=== PATIENT | female | born 1940 | race Caucasian/White ===

== ENCOUNTER 2017-03-02 12:17 | Inpatient (IN) | payer MEDICARE, OTHER ==
--- NOTE | ~2017-03-02 | IDS ---
Interim Discharge Summary [facility] [address] [place]. [address] NAME: PALOMO WITT : 42 STATUS : ADM IN PAT#: [id number] AGE: 76 ADM/REG DATE : 03/02/17 MR#: [id number] REPORT SERV DATE: 03/07/17 DICTATED BY: DATE: REPORT STATUS : Draft TRANSCRIBED BY: MODL DATE: 03/06/17 ADMISSION DATE: 03/02/2017 DISCHARGE DATE: ADDENDUM: Initial plan upon admission per family wishes was to attempt a trial of antibiotic therapy to see how the patient responded over several days. At that time, the patient's son did not want to proceed with Vascular Surgery's recommendation for right above knee amputation to treat chronic nonhealing right gangrenous heel ulcer. Trial of antibiotics to treat sepsis was initiated, and the patient's family requested that the patient be returned to long-term care facility under the care of their Hospice Service once antibiotics had stabilized infection. During this admission the patient has had multiple issues to include bacteremia related to right heel gangrene, E. coli urinary tract infection, and aspiration pneumonia confirmed with chest x-ray. The patient has responded well to antibiotic therapy to include Vancocin, cefepime, and Flagyl. The patient's son presented to the hospital today requesting reconsult with Vascular Surgery for reconsideration of above knee amputation right lower extremity when the patient's health status is optimized. Son stated he realizes that the patient's foot will never heal and he would like to give her an opportunity for infection source control since she is responding well to treatment for UTI, pneumonia, and bacteremia. 1. AFib with RVR. The patient has a history of atrial fibrillation and is on Cordarone and Cardizem. Prior to this dictation the patient's heart rate became elevated between 130 and 140s for greater than 30 minutes. EKG confirmed AFib with RVR. The patient's Cardizem CD 120 mg tablet p.o. every a.m. was discontinued and Cardizem 30 mg p.o. every 6 hours was initiated. First dose to be given at midnight. The patient will be placed on defensive monitoring. Consideration for transfer to telemetry floor if no response to medication change. 2. Right heel gangrene. Ulcer was present upon admission. Prior treatment included topical wound care and Bactrim DS at long-term care facility. Dr. Chua assessed the patient and stated only possible hope of benefit for infection control was above knee amputation. The patient's family now wishes to proceed with this surgical intervention if Vascular Surgery still agrees with the plan. 3. Acute bacteremia. Blood cultures positive for Morganella, this is related to right heel ulcer. Continue at least 14-day antibiotic therapy with Vancocin, cefepime, and Flagyl. 4. Urinary tract infection. Culture positive for greater than 100,000 colonies of E. coli. Continue antibiotic. 5. Protein calorie malnutrition. The patient has hypoalbuminemia. ProSource and Ensure Enlive have been added and the patient is taking these supplements three times daily without difficulty. 6. Likely aspiration pneumonia. The patient had change in respiratory status. On the morning of 03/05/2017 chest x-ray, confirmed likely aspiration pneumonia. Continue antibiotics. The patient's respiratory status is stable and respiratory status has improved. Interim Discharge Summary [address] [address] NAME: PALOMO WITT : 42 STATUS : ADM IN [facility]#: [id number] AGE: 76 ADM/REG DATE : 03/02/17 MR#: [id number] REPORT SERV DATE: 03/07/17 DICTATED BY: DATE: REPORT STATUS : Draft TRANSCRIBED BY: JANAY DATE: 03/06/17 7. Volume overload. The patient takes Lasix outpatient. She started exhibiting signs and symptoms of volume overload to include bilateral lower extremity edema and bilateral upper extremity edema. Lasix has been added back 20 mg IV every 12 hours. Monitor closely for dehydration and titrate as indicated. 8. Code status. At this time, the patient is a DNR limited, no compressions and no intubation. CURRENT PLAN: 1. Vascular Surgery has been reconsulted for evaluation and recommendation to proceed with right above knee amputation in the setting of right gangrenous heel ulcer. 2. The patient to eventually return to long-term care facility. If Surgery is not followed through then reconsider hospice on discharge. RUSTAM/JANAY ALFRED Calderón / [id number] CC: Shree Pollard II, MD
--- NOTE | ~2017-03-02 | DS ---
Discharge Summary [facility] [address] [facility] [place]. [address] NAME: PALOMO WITT : 42 STATUS : DIS IN PAT#: [id number] AGE: 76 ADM/REG DATE : 03/02/17 MR#: [id number] REPORT SERV DATE: 03/23/17 DICTATED BY: NABIL GRAF DATE: 03/22/17 REPORT STATUS : Draft TRANSCRIBED BY: MODL DATE: 03/22/17 ADMISSION DATE: 03/02/2017 DISCHARGE DATE: 03/22/2017 DISCHARGE DIAGNOSES: Include: 1. Right foot and heel gangrene with bacteremia Morganella, status post a right leg above- the-knee amputation performed on 03/10/2017. 2. Aspiration pneumonia, resolved. 3. Severe protein-kilocalorie malnutrition with hypoalbuminemia. 4. Hypotension, resolved. 5. Chronic atrial fibrillation. 6. Urinary tract infection, Escherichia coli, treated. 7. Volume overload. 8. Chronic debility. 9. History of dementia and bipolar. DISCHARGE MEDICATIONS: As follows: Eliquis 5 mg p.o. twice a day, amiodarone 200 mg twice a day, Celexa 30 mg daily, Depakote 125 mg daily, Depakote 375 mg at bedtime, metoprolol 12.5 mg twice a day, Prilosec 40 mg at breakfast and supper, MiraLAX one packet daily, Seroquel 50 mg twice a day, torsemide 20 mg daily, K-Dur 20 mEq p.o. daily, Imdur 30 mg daily, Ryegate 5/325 one tablet every four hours p.r.n. for pain, and nitroglycerin sublingual 0.4 mg p.r.n. for chest pain. HISTORY OF PRESENT ILLNESS: A 76-year-old white female, who had been a long-term resident at [facility] with a history of chronic debilitation and being bedridden, presented originally with a gangrenous right lower extremity. Please see the initial H and P of Dr. Rene Avalos. Please also see the interim discharge summary of Dr. Shree Pollard and the interim discharge summary of myself as this discharge summary will cover the dates of 03/14/2017 until 03/22/2017. CONTINUATION IN HOSPITAL COURSE: The patient had recovered well from her surgical procedure of the right [id number] amputation. Her incision was clean, dry, and intact with sutures. Her lab work had remained stable after receiving transfusion prior on 03/12/2017. She remained afebrile. Vascular Surgery, Dr. James Chua, agreed with discharge when approved for facility and with an outpatient followup. Her family did not wish for the patient to go back to [facility] and other facilities were chosen. It took several days for bed availability to be accomplished, and the patient remained stable, afebrile, in no acute distress with no new complaints and was finally approved for discharge on 03/22/2017 with the changes noted on her overall medication regimen with the addition of metoprolol and the discontinuation of her prior Cardizem. Please note, greater than 30 minutes was spent on this discharge for prior record review, medication review, discussions with case management and family. DICTATED BY: Nabil Graf NP Discharge Summary [address] [address] NAME: PALOMO WITT : 42 STATUS : DIS IN PAT#: [id number] AGE: 76 ADM/REG DATE : 03/02/17 MR#: [id number] REPORT SERV DATE: 03/23/17 DICTATED BY: NABIL GRAF DATE: 03/22/17 REPORT STATUS : Draft TRANSCRIBED BY: JANAY DATE: 03/22/17 GILMAR/JANAY Nabil Graf NP / [id number] CC: Yaniv Olmos MD
--- NOTE | ~2017-03-02 | IDS ---
Interim Discharge Summary [facility] [address] [place]. [address] NAME: PALOMO WITT : 42 STATUS : ADM IN [facility]#: [id number] AGE: 76 ADM/REG DATE : 03/02/17 MR#: [id number] REPORT SERV DATE: 03/07/17 DICTATED BY: DATE: REPORT STATUS : Draft TRANSCRIBED BY: MODL DATE: 03/06/17 ADMISSION DATE: 03/02/2017 DISCHARGE DATE: DATE OF DISCHARGE: Undetermined at this time. CONSULTATIONS: Dr. Chua, Vascular Surgery. Interim summary covers dates of service between 03/02/2017 and 03/06/2017. INTERIM DISCHARGE DIAGNOSES: 1. Atrial fibrillation now with rapid ventricular response. 2. Right heel gangrene. 3. Acute bacteremia. 4. Urinary tract infection. 5. Protein calorie malnutrition. 6. Likely aspiration pneumonia. 7. Volume overload. HOSPITAL COURSE: Briefly, the patient is a 76-year-old female who is a long-term resident at [facility]. The patient was admitted on 03/02/2017 for gangrene with septic shock. The patient has a history of nonhealing right heel ulcer. That long-term care facility had been treating topically with recent initiation of Septra. The patient is began presenting with hypotension, elevated heart rate, and blister on anterior foot at the level of the ankle. The patient was taken to the emergency room for further evaluation and treatment. RUSTAM/JANAY Gisell Rebolledo NP-Matt / [id number] CC: Shree Pollard II, MD
--- NOTE | ~2017-03-02 | HP ---
History And Physical [id number] [place]. [address] NAME: PALOMO WITT : 42 STATUS : ADM IN [facility]#: [id number] AGE: 76 ADM/REG DATE : 03/02/17 MR#: [id number] REPORT SERV DATE: 03/02/17 DICTATED BY: RA DAVIS DATE: 03/02/17 REPORT STATUS : Draft TRANSCRIBED BY: MODSukhdeep DATE: 03/02/17 DATE OF ADMISSION: 03/02/2017 ATTENDING PHYSICIAN: Dr. Schwarz. REASON FOR ADMISSION: Gangrene with septic shock and impending . HISTORY OF PRESENT ILLNESS: This is a 76-year-old white female who resides at [facility]. She is completely bedridden with extension contractures of her feet. She was hospitalized from 12/10/2016 to 12/14/2016. Son says she returned back with a heel ulcer at the time of readmission. They have been treating the heel ulcer topically and recently started Septra DS on the patient. She began having hypotension with blood pressure down to 90/60 with elevated heart rate and blister on the anterior foot at the level of the ankle. She was brought to the emergency room. Dr. Moreland saw him in evaluation. She called Mr. Alfredo Witt, her son and power of attorney at law, who states she does not want to have her leg taken off. The patient agrees that she does not want to have her leg taken off even if it were to save her life. We discussed in the emergency room, detention with hospice. The patient and her son do want to try antibiotics for a defined period of time IV and possible [employer]NA[employer] and Dr. Chua was consulted prior to my being consulted for admission. We are going to admit her to the hospital for those considerations but the patient remains comfort care and we will apply comfort measures even above curative relief. PAST MEDICAL HISTORY: She was recently in the hospital for influenza B and has had some heart disease in the past and son believes that she had coronary artery bypass grafting though there is no scar for this. She may have had TIAs in the past. She does not have any diabetes, history of stroke. She does have schizophrenia and dementia. She likely has Alzheimer's disease and history of COPD. She had DVT of her lower extremities and is on Eliquis for this and chronic atrial fibrillation. There is a questionable history of seizure disorder. She had GI bleeding while she was at [facility] and she used to take snuff orally. She had a left tibial fracture in 02/2016. CURRENT HOME MEDICATIONS: Her current home medications are as follows: Amiodarone 200 mg p.o. b.i.d.; Eliquis 5 mg p.o. b.i.d.; Celexa 30 mg p.o. q.a.m.; diltiazem ER 120 mg p.o. every morning; Depakote 125 mg p.o. every morning and 375 mg at bedtime; Lasix 40 mg p.o. q.a.m.; Wilmot 5/325 q.4 hours p.r.n. pain; isosorbide mononitrate 30 mg p.o. daily; nitroglycerin sublingually p.r.n.; omeprazole 40 mg p.o. before breakfast and supper; MiraLAX scheduled for constipation 1 packet every morning; potassium SR 20 mEq p.o. daily; Seroquel 50 mg p.o. b.i.d.; and Bactrim DS 1 tablet p.o. b.i.d. for 7 days, it was started yesterday and taken this morning. SOCIAL HISTORY: She lives in the detention. Took snuff orally as above. FAMILY HISTORY: She is unable to remember any family history and neither her son. REVIEW OF SYSTEMS: History And Physical [address] [address] NAME: PALOMO WITT : 42 STATUS : ADM IN [facility]#: [id number] AGE: 76 ADM/REG DATE : 03/02/17 MR#: [id number] REPORT SERV DATE: 03/02/17 DICTATED BY: RA DAVIS DATE: 03/02/17 REPORT STATUS : Draft TRANSCRIBED BY: JANAY DATE: 03/02/17 She is unable to complete the review of systems but denies chest pain and shortness of breath right now. The remainder of the systems is negative. PHYSICAL EXAMINATION: VITAL SIGNS: Her blood pressure is 90/60 with a heart rate of 125, respiratory rate was 18. HEENT: EOMI. Sclerae clear. Conjunctivae pink. NECK: No bruit without any JVD. CHEST: Clear to A and P. HEART: Irregularly irregular. Rapid. ABDOMEN: Soft. No masses felt. She resists deep palpation. Bowel sounds are positive. EXTREMITIES: Extremities have swelling in the lower extremities. She does have a large blister approximately 6 x 4 on the anterior right ankle. She has a blackened heel that extends around the edges but no actual drainage of purulent material or fluctuance. No distal pulses are palpable. She has extension contractures of her ankles. NEUROLOGIC: She has facial grimacing with some tic-like activity of her blinking of her eyes. She is edentulous. She moves upper extremities symmetrically and equally bilaterally. She does move her lower extremities and complains of discomfort when palpating in and around the right ankle and heel. LYMPHATICS: There is no adenopathy palpable. SKIN: Large blister on the right anterior ankle. LABORATORY: The BNP was 360. Lactate was 1.1. Urinalysis showed greater than 182 white cells per high-powered field. Comprehensive metabolic panel showed a creatinine of 1.78, BUN of 17, sodium of 135, potassium 3.8, her albumin was 1.9 with globulin of 4.2. Troponin 0.03. Hemoglobin 10.9, hematocrit 32.8, white count 12.8, and platelets 206,000. INR 1.9. ASSESSMENT: 1. Gangrene right heel, blister anteriorly. May have a combination of wet and dry gangrene. After discussion with the son, Aniceto, and the patient, she desires no amputation. We will try consideration of revascularization by percutaneous means. Dr. Chua been consulted even before I arrived. IV antibiotics with vancomycin and cefepime have been given. We may do better with Zosyn because of potential anaerobic coverage as well. She however has allergy to penicillins, so we will add clindamycin to the vancomycin and cefepime therapy. 2. We will try antibiotics for a defined period of time. The patient was offered hospice care to the son. He prefers defined limited treatment with comfort care in mind and see if treatment was effective; if not, after 1 to 2 days, he would accept hospice care and perhaps transfer back to [facility] with hospice care. 3. Atherosclerotic cardiovascular disease, extent is known. She did have an echocardiogram done during the prior hospitalization, that showed normal left ventricular function. 4. Schizophrenia. 5. Dementia. History And Physical [address] [address] NAME: PALOMO WITT : 42 STATUS : ADM IN PAT#: [id number] AGE: 76 ADM/REG DATE : 03/02/17 MR#: [id number] REPORT SERV DATE: 03/02/17 DICTATED BY: RA DAVIS DATE: 03/02/17 REPORT STATUS : Draft TRANSCRIBED BY: MODL DATE: 03/02/17 6. Atrial fibrillation chronic. 7. Protein calorie malnutrition. 8. Chronic pain. 9. Dementia with behavioral abnormality of the Alzheimer's type. 10.Constipation. PLAN: As outlined above, define antibiotics triple therapy. Vascular consult, this was already done prior to my arrival. Drain heal if necessary. PLAN: Percutaneous angioplasty if necessary to restore circulation but no amputation and onlay. The patient is not to be resuscitated in the event of cardiac arrest and use of comfort measures even in the face of hypotension will be used. JOSE ROBERTO/JANAY Ra Davis M.D. / [id number] CC: Mauro Schwarz Jr, MD Charles Scott Joels, M.D. Mauro Buenrostro M.D., Ph.D, F.A.C.C.
--- NOTE | ~2017-03-02 | IDS ---
Interim Discharge Summary [facility] [address] [place]. [address] NAME: PALOMO WITT : 42 STATUS : ADM IN [facility]#: [id number] AGE: 76 ADM/REG DATE : 03/02/17 MR#: [id number] REPORT SERV DATE: 03/14/17 DICTATED BY: NABIL GRAF DATE: 03/13/17 REPORT STATUS : Draft TRANSCRIBED BY: MODL DATE: 03/13/17 ADMISSION DATE: 03/02/2017 DISCHARGE DATE: INTERIM DIAGNOSES: Include: 1. Right foot and heel gangrene, status post right leg amputation, [id number] on 03/10/2017. 2. Anemia of acute blood loss, necessitating transfusion of packed red blood cells. Most recent hemoglobin and hematocrit 10.7 and 31.9. 3. Hypotension, improved. 4. Severe protein-kilocalorie malnutrition with hypoalbuminemia. 5. Chronic atrial fibrillation, rapid ventricular rate. 6. Chronic debility. 7. Dementia. 8. Aspiration pneumonia, treated with completion of antibiotics. 9. Urinary tract infection Escherichia coli, treated. 10.Volume overload. HISTORY OF PRESENT ILLNESS: A 76-year-old white female, who is a resident at [facility], chronically debilitated and bedridden for several years, who presented with gangrene of lower extremity and evidence of gangrene again. Please see the initial H and P of Dr. Rene Avalos as patient was started on an empiric antibiotic therapy. Lab work was ordered and followed, cultures were obtained. Please see the interim discharge summary of Dr. Shree Pollard as this interim summary will cover the dates of 03/07/2017 until 03/13/2017. CONSULTS DURING THIS ADMISSION: Include Vascular Surgery, Dr. James Chua. HOSPITAL COURSE: The patient was seen in the beginning on 03/07/[address] Suraj Osborn for discussion with the family about pursuing the amputation of the right lower extremity. She continued on antibiotic therapy for the time being and continued on treatment for her AFib and attempted to maximize her kcal in the setting of her malnutrition. After discussion with the family and Dr. James Chua, it was determined that they would pursue the hxjuz-sib-huht amputation which again was performed on 03/10/2017 with overall poor prognosis given her comorbidities and bedridden nature, but the patient subsequently went for the amputation and has recovered from that. She did require transfusion of packed red blood cells postoperatively in 2 units as she was somewhat hypotensive afterwards. We attempted to use some very low-dose beta-mat therapy with her AFib. She initially did not tolerate that, but I have attempted this again at 12.5 mg twice a day. Currently, the family does not wish to go back to her prior long-term care facility at [facility], and Case Management is working on other facility at this time. I have made adjustments on her diuretic therapy as I prefer torsemide given her low albumin state. Again, we will try a low-dose beta mat. Discontinued her IV fluid, discontinued her catheter, and have resumed her Eliquis postoperatively. I again want to thank Dr. James Chua help on this patient during hospitalization here and Interim Discharge Summary [address] [place]. [address] NAME: PALOMO WITT : 42 STATUS : ADM IN [facility]#: [id number] AGE: 76 ADM/REG DATE : 03/02/17 MR#: [id number] REPORT SERV DATE: 03/14/17 DICTATED BY: NABIL GRAF DATE: 03/13/17 REPORT STATUS : Draft TRANSCRIBED BY: JANAY DATE: 03/13/17 hopefully will be able to find a new facility very soon for discharge. GILMAR/BILLIEL Nabil Graf NP / [id number] CC: Suraj Osborn M.D.
--- NOTE | ~2017-03-02 | OP ---
Record Of Operation [facility] [address] [place]. [address] NAME: PALOMO WITT : 42 STATUS : ADM IN PAT#: [id number] AGE: 76 ADM/REG DATE : 03/02/17 MR#: [id number] REPORT SERV DATE: 03/10/17 DICTATED BY: JAMES CHUA DATE: 03/10/17 REPORT STATUS : Draft TRANSCRIBED BY: MODSukhdeep DATE: 03/10/17 DATE OF PROCEDURE: 03/10/2017 PREOPERATIVE DIAGNOSIS: Gangrene, right foot. POSTOPERATIVE DIAGNOSIS: Gangrene, right foot. PROCEDURE: Right above-knee amputation. SURGEON: James Chua M.D. RESIDENT: Shree Mcdonald. ANESTHESIA: General. COMPLICATIONS: None. BLOOD LOSS: 50 mL. HISTORY: The patient is a 76-year-old female with gangrene in her right foot. After long discussions with the family, they performed above-knee amputation instead of hospice. DESCRIPTION OF PROCEDURE: The patient was taken to the operating up room and placed in the supine position. She was given general anesthesia without complication. Right leg was prepped and draped in sterile fashion. Fish-mouth incision was created in the mid thigh with a 10 blade and Bovie cautery used to dissect the subcutaneous tissues and muscle. The sciatic nerve was identified and ligated with the silk tie and divided. The femoral vessels were controlled with clamps, divided, and ligated with silk ties. The femur was divided with a power saw proximal to the flaps. The stump was irrigated and hemostasis assured. The fascia was closed with running 2-0 Vicryl suture and the skin was closed with interrupted Ethilon vertical mattress sutures and sterile dressing applied. The patient tolerated the procedure relatively well. She will be extubated in the operating room and taken to recovery. MEET/JANAY James Chua M.D. / [id number] CC: Suraj Osborn M.D.
[2017-03-02 10:38] LABS: BASOPHILS 0.1 %; BASOPHILS ABSOLUTE 0.01 10/3/uL (0.0-0.16); EOSINOPHILS 0 %; HEMATOCRIT 32.8 % (36.0-48.0); HEMOGLOBIN 10.9 g/dL (12.0-16.0); IMMATURE GRANULOCYTES 0.5 %; IMMATURE GRANULOCYTES ABSOLUTE 0.06 10/3/uL (0.0-0.11); LYMPHOCYTES 5.9 %; LYMPHOCYTES ABSOLUTE 0.76 10/3/uL (0.67-4.30); MEAN CORPUS HGB CONC 33.2 g/dL (32.0-36.0); MEAN CORPUSCULAR HEMOGLOB 28.3 pg (26.0-34.0); MEAN PLATELET VOLUME 8.6 fL (9.2-13.0); MONOCYTES 9.9 %; MONOCYTES ABSOLUTE 1.27 10/3/uL (0.21-1.20); NEUTROPHILS 83.6 %; NEUTROPHILS ABSOLUTE 10.72 10/3/uL (2.02-8.40); RBC DISTRIBUTION WIDTH 17.8 % (12.0-16.0); RED CELL COUNT 3.85 10/6/uL (4.0-5.6)
[2017-03-02 10:39] LABS: ER CBC TAT 0 Hrs 07 Mins; MANUAL DIFF NO %; MEAN CORPUSCULAR VOLUME 85.2 fL (80-100); PLATELET COUNT 206 10/3/uL (150-400); WHITE BLOOD CELLS 12.8 10/3/uL (4.5-10.5)
[2017-03-02 10:45] LABS: INTERNATIONAL NORMAL RATI 1.9 UNITS (-); PROTIME (NOT ORD) 21.7 SEC (12.0-14.5)
[2017-03-02 10:46] LABS: PARTIAL THROMBO TIME 38.5 SEC (22.5-37.2)
[2017-03-02 10:57] LABS: A/G RATIO 0.5 (0.7-1.9); ALBUMIN 1.9 G/DL (3.5-5.0); ALKALINE PHOSPHATASE 134 U/L (45-117); BUN (BLOOD UREA NITROGEN) 17 MG/DL (6-23); CALCIUM, SERUM 8.5 MG/DL (8.5-10.4); CHLORIDE, SERUM 99 MMOL/L (96-112); CO2 (CARBON DIOXIDE) 29 MMOL/L (24-34); CREATININE 0.78 MG/DL (0.55-1.02); GFR AFRICAN AMERICAN 86 ML/MIN (>=60); GFR NON AFRICAN AMERICAN 74 ML/MIN (>=60); GLOBULIN 4.2 G/DL (2.5-4.1); GLUCOSE, SERUM 101 MG/DL (60-99); POTASSIUM, SERUM 3.8 MMOL/L (3.5-5.3); SGOT(AST) 33 U/L (5-40); SGPT(ALT) 17 U/L (5-65); SODIUM, SERUM 135 MMOL/L (135-148); TOTAL BILIRUBIN 0.6 MG/DL (0-1.2); TOTAL PROTEIN 6.1 G/DL (6.0-8.5); TROPONIN I 0.03 NG/ML (<0.05)
[2017-03-02 11:00] LABS: ASCORBIC ACID (UR NOT ORDER) NEG (NEG); BILIRUBIN, URINE SMALL (NEG); ER URINALYSIS TAT 0 Hrs 19 Mins; KETONE, URINE NEGATIVE (NEG); LEUKOCYTE ESTERASE(NOT OR MOD (NEG); NITRITE (URINE) POS (NEG)
[2017-03-02 11:03] LABS: WBC (NOT ORDERED) (RFLEX) > 182 (0-5)
[2017-03-02 11:06] LABS: LACTATE 1.1 MMOL/L (0.3-2.4)
[~2017-03-02 12:17] MED LIST: ASAB PO; BACTRIM DS1 TAB PO; BETAPACE80 PO; CARDCD120 PO; CELEXA10 PO; CORDARONE PO; DEPAKOTE 125 M125 MG PO; ELIQUIS 5 MG TAB5 MG PO; IMDUR30 PO; KDUR20 PO; KLOR-CON M2020 MEQ PO; L20 PO; L40 PO; MIRALAX POWDER1 PKT PO; NITROSTAT0.4 MG SL; NORCO1 TA1 PO; NYSTATPOW TOP; P20 PO; PHENERGAN (G25 MG/ML IM; PR25 PO; PRILOSEC40 MG PO; SEROQUEL1C PO; SEROQUEL50 MG PO; TAMIFLU PO; TIAZAC PO
[2017-03-03 05:04] LABS: BASOPHILS 0.1 %; BASOPHILS ABSOLUTE 0.01 10/3/uL (0.0-0.16); EOSINOPHILS 0.3 %; EOSINOPHILS ABSOLUTE 0.02 10/3/uL (0.0-0.53); HEMATOCRIT 30.7 % (36.0-48.0); HEMOGLOBIN 9.8 g/dL (12.0-16.0); IMMATURE GRANULOCYTES 0.4 %; IMMATURE GRANULOCYTES ABSOLUTE 0.03 10/3/uL (0.0-0.11); LYMPHOCYTES 14.8 %; LYMPHOCYTES ABSOLUTE 1.11 10/3/uL (0.67-4.30); MEAN CORPUS HGB CONC 31.9 g/dL (32.0-36.0); MEAN CORPUSCULAR VOLUME 87.7 fL (80-100); MEAN PLATELET VOLUME 8.4 fL (9.2-13.0); MONOCYTES 14.5 %; MONOCYTES ABSOLUTE 1.09 10/3/uL (0.21-1.20); NEUTROPHILS 69.9 %; NEUTROPHILS ABSOLUTE 5.26 10/3/uL (2.02-8.40); PLATELET COUNT 169 10/3/uL (150-400); RBC DISTRIBUTION WIDTH 17.9 % (12.0-16.0)
[2017-03-03 05:08] LABS: MANUAL DIFF NO %; WHITE BLOOD CELLS 7.5 10/3/uL (4.5-10.5)
[2017-03-03 05:24] LABS: BUN (BLOOD UREA NITROGEN) 16 MG/DL (6-23); CALCIUM, SERUM 8.1 MG/DL (8.5-10.4); CHLORIDE, SERUM 107 MMOL/L (96-112); CO2 (CARBON DIOXIDE) 28 MMOL/L (24-34); GFR AFRICAN AMERICAN 103 ML/MIN (>=60); GFR NON AFRICAN AMERICAN 89 ML/MIN (>=60); GLUCOSE, SERUM 95 MG/DL (60-99); POTASSIUM, SERUM 3.6 MMOL/L (3.5-5.3); SODIUM, SERUM 140 MMOL/L (135-148)
[2017-03-04 08:08] LABS: ALLENS TEST Pos; BE (BASE EXCESS) -4.5 MEQ/L (0 +/- 2.5); CARBOXYHEMOGLOBIN 0.9 % (0-3); DEVICE NC; HCO3 (ACTUAL BICARBONATE) 22.6 MEQ/L (23-27); HEMOBLOGIN CONTENT 11.2 G/DL (12-16); INSTRUMENT SERIAL # 8083; METHEMOGLOBIN 0.2 % (0-3); O2 CONTENT 15.1 VOL% (18-24); OPERATOR ID 13715; PCO2 (CO2 TENSION) 50 MMHG (35-45); PO2 (O2 TENSION) 89 MMHG (79-93); SAMPLE Arterial; pH 7.27 (7.37-7.43)
[2017-03-04 08:15] LABS: BASOPHILS 0.1 %; BASOPHILS ABSOLUTE 0.01 10/3/uL (0.0-0.16); EOSINOPHILS 0.4 %; EOSINOPHILS ABSOLUTE 0.04 10/3/uL (0.0-0.53); HEMATOCRIT 33.4 % (36.0-48.0); HEMOGLOBIN 10.5 g/dL (12.0-16.0); IMMATURE GRANULOCYTES 0.3 %; IMMATURE GRANULOCYTES ABSOLUTE 0.03 10/3/uL (0.0-0.11); LYMPHOCYTES 7.4 %; LYMPHOCYTES ABSOLUTE 0.75 10/3/uL (0.67-4.30); MEAN CORPUS HGB CONC 31.4 g/dL (32.0-36.0); MEAN CORPUSCULAR HEMOGLOB 28.1 pg (26.0-34.0); MEAN CORPUSCULAR VOLUME 89.3 fL (80-100); MEAN PLATELET VOLUME 8.6 fL (9.2-13.0); MONOCYTES 12.3 %; MONOCYTES ABSOLUTE 1.24 10/3/uL (0.21-1.20); NEUTROPHILS 79.5 %; NEUTROPHILS ABSOLUTE 8.03 10/3/uL (2.02-8.40); PLATELET COUNT 205 10/3/uL (150-400); RBC DISTRIBUTION WIDTH 17.8 % (12.0-16.0); RED CELL COUNT 3.74 10/6/uL (4.0-5.6); WHITE BLOOD CELLS 10.1 10/3/uL (4.5-10.5)
[2017-03-04 08:17] LABS: MANUAL DIFF NO %
[2017-03-04 08:28] LABS: CALCIUM, SERUM 8.7 MG/DL (8.5-10.4); CHLORIDE, SERUM 107 MMOL/L (96-112); CO2 (CARBON DIOXIDE) 26 MMOL/L (24-34); CREATININE 0.97 MG/DL (0.55-1.02); GFR AFRICAN AMERICAN 66 ML/MIN (>=60); GFR NON AFRICAN AMERICAN 57 ML/MIN (>=60); GLUCOSE, SERUM 77 MG/DL (60-99); SODIUM, SERUM 138 MMOL/L (135-148)
[2017-03-04 08:35] LABS: BUN (BLOOD UREA NITROGEN) 21 MG/DL (6-23); POTASSIUM, SERUM 4.4 MMOL/L (3.5-5.3)
[2017-03-04 09:08] LABS: PROCALCITONIN 0.28 ng/mL (<0.5)
[2017-03-05 05:38] LABS: BASOPHILS 0.4 %; BASOPHILS ABSOLUTE 0.03 10/3/uL (0.0-0.16); EOSINOPHILS 0.7 %; EOSINOPHILS ABSOLUTE 0.06 10/3/uL (0.0-0.53); HEMOGLOBIN 9.3 g/dL (12.0-16.0); IMMATURE GRANULOCYTES 0.8 %; IMMATURE GRANULOCYTES ABSOLUTE 0.07 10/3/uL (0.0-0.11); LYMPHOCYTES 14.3 %; LYMPHOCYTES ABSOLUTE 1.18 10/3/uL (0.67-4.30); MEAN CORPUS HGB CONC 32.1 g/dL (32.0-36.0); MEAN CORPUSCULAR HEMOGLOB 27.7 pg (26.0-34.0); MEAN CORPUSCULAR VOLUME 86.3 fL (80-100); MEAN PLATELET VOLUME 8.8 fL (9.2-13.0); MONOCYTES 12.4 %; MONOCYTES ABSOLUTE 1.03 10/3/uL (0.21-1.20); NEUTROPHILS 71.4 %; NEUTROPHILS ABSOLUTE 5.91 10/3/uL (2.02-8.40); PLATELET COUNT 225 10/3/uL (150-400); RBC DISTRIBUTION WIDTH 17.2 % (12.0-16.0); RED CELL COUNT 3.36 10/6/uL (4.0-5.6); WHITE BLOOD CELLS 8.3 10/3/uL (4.5-10.5)
[2017-03-05 05:39] LABS: MANUAL DIFF NO %
[2017-03-05 05:57] LABS: BUN (BLOOD UREA NITROGEN) 16 MG/DL (6-23); CALCIUM, SERUM 8.2 MG/DL (8.5-10.4); CHLORIDE, SERUM 104 MMOL/L (96-112); CO2 (CARBON DIOXIDE) 30 MMOL/L (24-34); CREATININE 0.68 MG/DL (0.55-1.02); GFR AFRICAN AMERICAN 99 ML/MIN (>=60); GFR NON AFRICAN AMERICAN 86 ML/MIN (>=60); GLUCOSE, SERUM 93 MG/DL (60-99); POTASSIUM, SERUM 3.1 MMOL/L (3.5-5.3); SODIUM, SERUM 140 MMOL/L (135-148)
[2017-03-06 05:13] LABS: BASOPHILS 0.4 %; BASOPHILS ABSOLUTE 0.03 10/3/uL (0.0-0.16); EOSINOPHILS 0.9 %; EOSINOPHILS ABSOLUTE 0.07 10/3/uL (0.0-0.53); HEMATOCRIT 29.9 % (36.0-48.0); HEMOGLOBIN 9.7 g/dL (12.0-16.0); IMMATURE GRANULOCYTES 0.7 %; IMMATURE GRANULOCYTES ABSOLUTE 0.06 10/3/uL (0.0-0.11); LYMPHOCYTES 14.9 %; MEAN CORPUS HGB CONC 32.4 g/dL (32.0-36.0); MEAN CORPUSCULAR HEMOGLOB 28.3 pg (26.0-34.0); MEAN CORPUSCULAR VOLUME 87.2 fL (80-100); MEAN PLATELET VOLUME 8.9 fL (9.2-13.0); MONOCYTES ABSOLUTE 0.97 10/3/uL (0.21-1.20); NEUTROPHILS 71.1 %; NEUTROPHILS ABSOLUTE 5.75 10/3/uL (2.02-8.40); PLATELET COUNT 214 10/3/uL (150-400); RBC DISTRIBUTION WIDTH 17.4 % (12.0-16.0); RED CELL COUNT 3.43 10/6/uL (4.0-5.6); WHITE BLOOD CELLS 8.1 10/3/uL (4.5-10.5)
[2017-03-06 05:18] LABS: MANUAL DIFF NO %
[2017-03-06 05:29] LABS: CALCIUM, SERUM 8.9 MG/DL (8.5-10.4); CHLORIDE, SERUM 105 MMOL/L (96-112); CO2 (CARBON DIOXIDE) 30 MMOL/L (24-34); CREATININE 0.59 MG/DL (0.55-1.02); GFR AFRICAN AMERICAN 104 ML/MIN (>=60); GFR NON AFRICAN AMERICAN 90 ML/MIN (>=60); GLUCOSE, SERUM 102 MG/DL (60-99); POTASSIUM, SERUM 3.3 MMOL/L (3.5-5.3); SODIUM, SERUM 142 MMOL/L (135-148)
[2017-03-06 05:31] LABS: BUN (BLOOD UREA NITROGEN) 21 MG/DL (6-23)
[2017-03-07 10:02] LABS: BASOPHILS 0.4 %; BASOPHILS ABSOLUTE 0.04 10/3/uL (0.0-0.16); EOSINOPHILS 1.4 %; EOSINOPHILS ABSOLUTE 0.13 10/3/uL (0.0-0.53); HEMATOCRIT 30.5 % (36.0-48.0); HEMOGLOBIN 9.7 g/dL (12.0-16.0); IMMATURE GRANULOCYTES 1.8 %; IMMATURE GRANULOCYTES ABSOLUTE 0.17 10/3/uL (0.0-0.11); LYMPHOCYTES 14.3 %; LYMPHOCYTES ABSOLUTE 1.38 10/3/uL (0.67-4.30); MANUAL DIFF NO %; MEAN CORPUS HGB CONC 31.8 g/dL (32.0-36.0); MEAN CORPUSCULAR HEMOGLOB 27.9 pg (26.0-34.0); MEAN CORPUSCULAR VOLUME 87.6 fL (80-100); MEAN PLATELET VOLUME 8.9 fL (9.2-13.0); MONOCYTES 13.6 %; MONOCYTES ABSOLUTE 1.31 10/3/uL (0.21-1.20); NEUTROPHILS 68.5 %; NEUTROPHILS ABSOLUTE 6.59 10/3/uL (2.02-8.40); PLATELET COUNT 249 10/3/uL (150-400); RBC DISTRIBUTION WIDTH 17.5 % (12.0-16.0); RED CELL COUNT 3.48 10/6/uL (4.0-5.6); WHITE BLOOD CELLS 9.6 10/3/uL (4.5-10.5)
[2017-03-07 10:17] LABS: BUN (BLOOD UREA NITROGEN) 22 MG/DL (6-23); CALCIUM, SERUM 8.3 MG/DL (8.5-10.4); CHLORIDE, SERUM 104 MMOL/L (96-112); CO2 (CARBON DIOXIDE) 34 MMOL/L (24-34); CREATININE 0.54 MG/DL (0.55-1.02); GFR AFRICAN AMERICAN 107 ML/MIN (>=60); GFR NON AFRICAN AMERICAN 92 ML/MIN (>=60); GLUCOSE, SERUM 134 MG/DL (60-99); POTASSIUM, SERUM 3.5 MMOL/L (3.5-5.3); SODIUM, SERUM 142 MMOL/L (135-148)
[2017-03-07 14:16] LABS: PREALBUMIN 8.2 MG/DL (17.0-43.0)
[2017-03-08 05:59] LABS: BASOPHILS 0.5 %; BASOPHILS ABSOLUTE 0.04 10/3/uL (0.0-0.16); EOSINOPHILS 1.2 %; EOSINOPHILS ABSOLUTE 0.09 10/3/uL (0.0-0.53); HEMATOCRIT 28.5 % (36.0-48.0); HEMOGLOBIN 8.9 g/dL (12.0-16.0); IMMATURE GRANULOCYTES 2.4 %; IMMATURE GRANULOCYTES ABSOLUTE 0.18 10/3/uL (0.0-0.11); LYMPHOCYTES 19.7 %; LYMPHOCYTES ABSOLUTE 1.49 10/3/uL (0.67-4.30); MEAN CORPUS HGB CONC 31.2 g/dL (32.0-36.0); MEAN CORPUSCULAR HEMOGLOB 28.1 pg (26.0-34.0); MEAN CORPUSCULAR VOLUME 89.9 fL (80-100); MEAN PLATELET VOLUME 8.7 fL (9.2-13.0); MONOCYTES 15.2 %; MONOCYTES ABSOLUTE 1.15 10/3/uL (0.21-1.20); NEUTROPHILS ABSOLUTE 4.61 10/3/uL (2.02-8.40); PLATELET COUNT 263 10/3/uL (150-400); RBC DISTRIBUTION WIDTH 17.9 % (12.0-16.0); RED CELL COUNT 3.17 10/6/uL (4.0-5.6); WHITE BLOOD CELLS 7.6 10/3/uL (4.5-10.5)
[2017-03-08 06:01] LABS: MANUAL DIFF NO %
[2017-03-08 06:02] LABS: ALBUMIN 1.6 G/DL (3.5-5.0); BUN (BLOOD UREA NITROGEN) 23 MG/DL (6-23); CHLORIDE, SERUM 103 MMOL/L (96-112); CO2 (CARBON DIOXIDE) 35 MMOL/L (24-34); CREATININE 0.61 MG/DL (0.55-1.02); GFR AFRICAN AMERICAN 103 ML/MIN (>=60); GFR NON AFRICAN AMERICAN 89 ML/MIN (>=60); PHOSPHORUS, SERUM 2.3 MG/DL (2.5-4.5); POTASSIUM, SERUM 3.8 MMOL/L (3.5-5.3); SODIUM, SERUM 143 MMOL/L (135-148)
[2017-03-08 06:03] LABS: GLUCOSE, SERUM 105 MG/DL (60-99)
[2017-03-09 06:22] LABS: BASOPHILS 1.1 %; BASOPHILS ABSOLUTE 0.09 10/3/uL (0.0-0.16); EOSINOPHILS 0.9 %; EOSINOPHILS ABSOLUTE 0.08 10/3/uL (0.0-0.53); HEMATOCRIT 27.8 % (36.0-48.0); HEMOGLOBIN 8.8 g/dL (12.0-16.0); IMMATURE GRANULOCYTES 1.8 %; IMMATURE GRANULOCYTES ABSOLUTE 0.15 10/3/uL (0.0-0.11); LYMPHOCYTES ABSOLUTE 1.44 10/3/uL (0.67-4.30); MEAN CORPUS HGB CONC 31.7 g/dL (32.0-36.0); MEAN CORPUSCULAR HEMOGLOB 27.9 pg (26.0-34.0); MEAN CORPUSCULAR VOLUME 88.3 fL (80-100); MEAN PLATELET VOLUME 8.5 fL (9.2-13.0); MONOCYTES 14.3 %; MONOCYTES ABSOLUTE 1.21 10/3/uL (0.21-1.20); NEUTROPHILS 64.9 %; PLATELET COUNT 291 10/3/uL (150-400); RBC DISTRIBUTION WIDTH 18.1 % (12.0-16.0); RED CELL COUNT 3.15 10/6/uL (4.0-5.6); WHITE BLOOD CELLS 8.5 10/3/uL (4.5-10.5)
[2017-03-09 06:23] LABS: MANUAL DIFF NO %
[2017-03-09 06:34] LABS: ALBUMIN 1.6 G/DL (3.5-5.0); CHLORIDE, SERUM 104 MMOL/L (96-112); CO2 (CARBON DIOXIDE) 32 MMOL/L (24-34); GFR AFRICAN AMERICAN 103 ML/MIN (>=60); GFR NON AFRICAN AMERICAN 89 ML/MIN (>=60); GLUCOSE, SERUM 109 MG/DL (60-99); PHOSPHORUS, SERUM 2.9 MG/DL (2.5-4.5); SODIUM, SERUM 143 MMOL/L (135-148)
[2017-03-09 06:41] LABS: BUN (BLOOD UREA NITROGEN) 34 MG/DL (6-23); POTASSIUM, SERUM 4.7 MMOL/L (3.5-5.3)
[2017-03-10 05:32] LABS: ALBUMIN 1.5 G/DL (3.5-5.0); CALCIUM, SERUM 8.6 MG/DL (8.5-10.4); CHLORIDE, SERUM 98 MMOL/L (96-112); CO2 (CARBON DIOXIDE) 35 MMOL/L (24-34); CREATININE 0.57 MG/DL (0.55-1.02); GFR AFRICAN AMERICAN 105 ML/MIN (>=60); GFR NON AFRICAN AMERICAN 91 ML/MIN (>=60); GLUCOSE, SERUM 113 MG/DL (60-99); PHOSPHORUS, SERUM 2.6 MG/DL (2.5-4.5); POTASSIUM, SERUM 3.9 MMOL/L (3.5-5.3); SODIUM, SERUM 140 MMOL/L (135-148)
[2017-03-10 05:35] LABS: HEMATOCRIT 27.8 % (36.0-48.0); MEAN CORPUS HGB CONC 32.4 g/dL (32.0-36.0); MEAN CORPUSCULAR VOLUME 86.6 fL (80-100); MEAN PLATELET VOLUME 8.6 fL (9.2-13.0); PLATELET COUNT 297 10/3/uL (150-400); RBC DISTRIBUTION WIDTH 17.9 % (12.0-16.0); RED CELL COUNT 3.21 10/6/uL (4.0-5.6); WHITE BLOOD CELLS 10.1 10/3/uL (4.5-10.5)
[2017-03-10 05:39] LABS: MANUAL DIFF YES %
[2017-03-10 05:52] LABS: BUN (BLOOD UREA NITROGEN) 27 MG/DL (6-23)
[2017-03-10 07:17] LABS: PROCALCITONIN <0.05 ng/mL (<0.5)
[2017-03-10 07:28] LABS: ANISOCYTOSIS 1+ (5-10/OIF) (0-5/OIF); BAND NEUTROPHILS 13 %; EOSINOPHILS 1 %; LYMPHOCYTES 14 %; LYMPHOCYTES ABSOLUTE (CALC) 1.41 10/3/uL (0.67-4.30); METAMYELOCYTES 2 %; MICROCYTES 1+ (5-10/OIF) (0-5/OIF); MONOCYTES 11 %; MONOCYTES ABSOLUTE (CALC) 1.11 10/3/uL (0.21-1.20); NEUTROPHILS ABSOLUTE (CALC) 7.27 10/3/uL (2.02-8.40); NUCLEATED RED BLOOD CELLS 1 /100WBC (0); PLATELET ESTIMATE ADQ (ADEQUATE); SEGMENTED NEUTROPHIL (0) 59 %; TOTAL NUCLEATED CELLS 100
[2017-03-10 07:29] LABS: POLYCHROMASIA 1+ (2-5/OIF) (0-1/OIF); REACTIVE LYMPHS OCC (0-2%) (0-5%); TOXIC GRANULATION 1+
[2017-03-11 05:46] LABS: HEMATOCRIT 25.8 % (36.0-48.0); HEMOGLOBIN 8.2 g/dL (12.0-16.0); MEAN CORPUS HGB CONC 31.8 g/dL (32.0-36.0); MEAN CORPUSCULAR HEMOGLOB 27.7 pg (26.0-34.0); MEAN CORPUSCULAR VOLUME 87.2 fL (80-100); MEAN PLATELET VOLUME 8.7 fL (9.2-13.0); PLATELET COUNT 331 10/3/uL (150-400); RBC DISTRIBUTION WIDTH 17.8 % (12.0-16.0); RED CELL COUNT 2.96 10/6/uL (4.0-5.6); WHITE BLOOD CELLS 11.1 10/3/uL (4.5-10.5)
[2017-03-11 05:47] LABS: MANUAL DIFF YES %
[2017-03-11 06:02] LABS: CALCIUM, SERUM 9.2 MG/DL (8.5-10.4); CHLORIDE, SERUM 99 MMOL/L (96-112); CO2 (CARBON DIOXIDE) 31 MMOL/L (24-34); CREATININE 0.47 MG/DL (0.55-1.02); GFR AFRICAN AMERICAN 112 ML/MIN (>=60); GFR NON AFRICAN AMERICAN 97 ML/MIN (>=60); GLUCOSE, SERUM 128 MG/DL (60-99); SODIUM, SERUM 138 MMOL/L (135-148)
[2017-03-11 06:17] LABS: ALBUMIN 2.1 G/DL (3.5-5.0); BUN (BLOOD UREA NITROGEN) 23 MG/DL (6-23); POTASSIUM, SERUM 4.7 MMOL/L (3.5-5.3)
[2017-03-11 07:43] LABS: BAND NEUTROPHILS 16 %; BASOPHILS 1 %; BASOPHILS ABSOLUTE (CALC) 0.11 10/3/uL (0.0-0.16); LYMPHOCYTES 6 %; LYMPHOCYTES ABSOLUTE (CALC) 0.67 10/3/uL (0.67-4.30); MONOCYTES 3 %; MONOCYTES ABSOLUTE (CALC) 0.33 10/3/uL (0.21-1.20); NEUTROPHILS ABSOLUTE (CALC) 9.77 10/3/uL (2.02-8.40); PLASMA CELL 2 % (0); PLATELET ESTIMATE ADQ (ADEQUATE); SEGMENTED NEUTROPHIL (0) 72 %; TOTAL NUCLEATED CELLS 100
[2017-03-11 07:44] LABS: ANISOCYTOSIS 1+ (5-10/OIF) (0-5/OIF); MICROCYTES 1+ (5-10/OIF) (0-5/OIF); REACTIVE LYMPHS OCC (0-2%) (0-5%); TOXIC GRANULATION 1+
[2017-03-12 07:25] LABS: BASOPHILS 0.3 %; BASOPHILS ABSOLUTE 0.02 10/3/uL (0.0-0.16); EOSINOPHILS 0.5 %; EOSINOPHILS ABSOLUTE 0.04 10/3/uL (0.0-0.53); HEMOGLOBIN 7.2 g/dL (12.0-16.0); IMMATURE GRANULOCYTES 0.8 %; IMMATURE GRANULOCYTES ABSOLUTE 0.06 10/3/uL (0.0-0.11); LYMPHOCYTES 13.7 %; LYMPHOCYTES ABSOLUTE 1.01 10/3/uL (0.67-4.30); MEAN CORPUS HGB CONC 32.1 g/dL (32.0-36.0); MEAN CORPUSCULAR HEMOGLOB 27.9 pg (26.0-34.0); MEAN CORPUSCULAR VOLUME 86.8 fL (80-100); MEAN PLATELET VOLUME 8.8 fL (9.2-13.0); MONOCYTES 8.4 %; MONOCYTES ABSOLUTE 0.62 10/3/uL (0.21-1.20); NEUTROPHILS 76.3 %; NEUTROPHILS ABSOLUTE 5.64 10/3/uL (2.02-8.40); PLATELET COUNT 314 10/3/uL (150-400); RBC DISTRIBUTION WIDTH 17.5 % (12.0-16.0); RED CELL COUNT 2.58 10/6/uL (4.0-5.6); WHITE BLOOD CELLS 7.4 10/3/uL (4.5-10.5)
[2017-03-12 07:26] LABS: HEMATOCRIT 22.4 % (36.0-48.0); MANUAL DIFF NO %
[2017-03-12 07:30] LABS: BUN (BLOOD UREA NITROGEN) 24 MG/DL (6-23); CALCIUM, SERUM 8.4 MG/DL (8.5-10.4); CHLORIDE, SERUM 96 MMOL/L (96-112); CREATININE 0.68 MG/DL (0.55-1.02); GFR AFRICAN AMERICAN 99 ML/MIN (>=60); GFR NON AFRICAN AMERICAN 86 ML/MIN (>=60); GLUCOSE, SERUM 122 MG/DL (60-99); POTASSIUM, SERUM 3.8 MMOL/L (3.5-5.3); SODIUM, SERUM 135 MMOL/L (135-148)
[2017-03-12 07:31] LABS: CO2 (CARBON DIOXIDE) 37 MMOL/L (24-34)
[2017-03-13 05:50] LABS: BASOPHILS 0.3 %; BASOPHILS ABSOLUTE 0.03 10/3/uL (0.0-0.16); EOSINOPHILS 0.9 %; EOSINOPHILS ABSOLUTE 0.08 10/3/uL (0.0-0.53); IMMATURE GRANULOCYTES 1.7 %; IMMATURE GRANULOCYTES ABSOLUTE 0.16 10/3/uL (0.0-0.11); LYMPHOCYTES 15.4 %; LYMPHOCYTES ABSOLUTE 1.44 10/3/uL (0.67-4.30); MEAN CORPUS HGB CONC 33.5 g/dL (32.0-36.0); MEAN CORPUSCULAR HEMOGLOB 28.5 pg (26.0-34.0); MEAN CORPUSCULAR VOLUME 85.1 fL (80-100); MEAN PLATELET VOLUME 8.8 fL (9.2-13.0); MONOCYTES 9.7 %; MONOCYTES ABSOLUTE 0.91 10/3/uL (0.21-1.20); NEUTROPHILS ABSOLUTE 6.75 10/3/uL (2.02-8.40); PLATELET COUNT 323 10/3/uL (150-400); RBC DISTRIBUTION WIDTH 16.6 % (12.0-16.0); WHITE BLOOD CELLS 9.4 10/3/uL (4.5-10.5)
[2017-03-13 05:54] LABS: HEMATOCRIT 31.9 % (36.0-48.0); HEMOGLOBIN 10.7 g/dL (12.0-16.0); MANUAL DIFF NO %; RED CELL COUNT 3.75 10/6/uL (4.0-5.6)
[2017-03-13 06:02] LABS: BUN (BLOOD UREA NITROGEN) 36 MG/DL (6-23); CALCIUM, SERUM 8.4 MG/DL (8.5-10.4); CHLORIDE, SERUM 96 MMOL/L (96-112); CO2 (CARBON DIOXIDE) 36 MMOL/L (24-34); CREATININE 0.74 MG/DL (0.55-1.02); GFR AFRICAN AMERICAN 92 ML/MIN (>=60); GFR NON AFRICAN AMERICAN 79 ML/MIN (>=60); GLUCOSE, SERUM 104 MG/DL (60-99); POTASSIUM, SERUM 3.3 MMOL/L (3.5-5.3); SODIUM, SERUM 135 MMOL/L (135-148)
[2017-03-15 05:38] LABS: BASOPHILS 0.5 %; BASOPHILS ABSOLUTE 0.03 10/3/uL (0.0-0.16); EOSINOPHILS 1.4 %; EOSINOPHILS ABSOLUTE 0.08 10/3/uL (0.0-0.53); HEMATOCRIT 31.5 % (36.0-48.0); HEMOGLOBIN 10.3 g/dL (12.0-16.0); IMMATURE GRANULOCYTES 0.8 %; IMMATURE GRANULOCYTES ABSOLUTE 0.05 10/3/uL (0.0-0.11); LYMPHOCYTES 24.2 %; LYMPHOCYTES ABSOLUTE 1.43 10/3/uL (0.67-4.30); MEAN CORPUS HGB CONC 32.7 g/dL (32.0-36.0); MEAN CORPUSCULAR HEMOGLOB 28.4 pg (26.0-34.0); MEAN CORPUSCULAR VOLUME 86.8 fL (80-100); MEAN PLATELET VOLUME 8.5 fL (9.2-13.0); MONOCYTES 10.5 %; MONOCYTES ABSOLUTE 0.62 10/3/uL (0.21-1.20); NEUTROPHILS 62.6 %; PLATELET COUNT 286 10/3/uL (150-400); RBC DISTRIBUTION WIDTH 17.1 % (12.0-16.0); RED CELL COUNT 3.63 10/6/uL (4.0-5.6); WHITE BLOOD CELLS 5.9 10/3/uL (4.5-10.5)
[2017-03-15 05:41] LABS: MANUAL DIFF NO %
[2017-03-15 05:56] LABS: BUN (BLOOD UREA NITROGEN) 34 MG/DL (6-23); CALCIUM, SERUM 8.6 MG/DL (8.5-10.4); CHLORIDE, SERUM 98 MMOL/L (96-112); CO2 (CARBON DIOXIDE) 39 MMOL/L (24-34); GFR AFRICAN AMERICAN 98 ML/MIN (>=60); GFR NON AFRICAN AMERICAN 85 ML/MIN (>=60); GLUCOSE, SERUM 105 MG/DL (60-99); SODIUM, SERUM 140 MMOL/L (135-148)
[2017-03-17 05:07] LABS: BASOPHILS 0.9 %; BASOPHILS ABSOLUTE 0.04 10/3/uL (0.0-0.16); EOSINOPHILS 1.7 %; EOSINOPHILS ABSOLUTE 0.08 10/3/uL (0.0-0.53); HEMOGLOBIN 10.5 g/dL (12.0-16.0); IMMATURE GRANULOCYTES 0.6 %; IMMATURE GRANULOCYTES ABSOLUTE 0.03 10/3/uL (0.0-0.11); LYMPHOCYTES 32.1 %; LYMPHOCYTES ABSOLUTE 1.49 10/3/uL (0.67-4.30); MEAN CORPUS HGB CONC 31.8 g/dL (32.0-36.0); MEAN CORPUSCULAR HEMOGLOB 28.4 pg (26.0-34.0); MEAN CORPUSCULAR VOLUME 89.2 fL (80-100); MEAN PLATELET VOLUME 8.8 fL (9.2-13.0); MONOCYTES 10.6 %; MONOCYTES ABSOLUTE 0.49 10/3/uL (0.21-1.20); NEUTROPHILS 54.1 %; NEUTROPHILS ABSOLUTE 2.51 10/3/uL (2.02-8.40); PLATELET COUNT 274 10/3/uL (150-400); RBC DISTRIBUTION WIDTH 17.5 % (12.0-16.0); WHITE BLOOD CELLS 4.6 10/3/uL (4.5-10.5)
[2017-03-17 05:08] LABS: MANUAL DIFF NO %
[2017-03-17 05:12] LABS: ALBUMIN 2.3 G/DL (3.5-5.0); CALCIUM, SERUM 8.8 MG/DL (8.5-10.4); CHLORIDE, SERUM 95 MMOL/L (96-112); GFR AFRICAN AMERICAN 98 ML/MIN (>=60); GFR NON AFRICAN AMERICAN 85 ML/MIN (>=60); GLUCOSE, SERUM 86 MG/DL (60-99); PHOSPHORUS, SERUM 3.6 MG/DL (2.5-4.5); SODIUM, SERUM 136 MMOL/L (135-148)
[2017-03-17 05:13] LABS: BUN (BLOOD UREA NITROGEN) 24 MG/DL (6-23); CO2 (CARBON DIOXIDE) 34 MMOL/L (24-34)
== END 2017-03-22 12:14 | DRG 853 ==
LOC: ER 12:17 → 4EA 13:26 → 2SO 03-10 18:18
PROVIDERS: Emergency Medicine; Internal Medicine; Nurse Practitioner Family; Radiology Radiation Oncology; Surgery
PROC: 0Y6C0Z3 Detachment at Right Upper Leg, Low, Open Approach (ICD-10-PCS; principal; 2017-03-10 15:15)
PROC: 30233N1 Transfusion of Nonautologous Red Blood Cells into Peripheral Vein, Percutaneous Approach (ICD-10-PCS; 2017-03-12)
DX: A41.9 Sepsis, unspecified organism (principal); J69.0 Pneumonitis due to inhalation of food and vomit; R65.21 Severe sepsis with septic shock; E43 Unspecified severe protein-calorie malnutrition; I95.9 Hypotension, unspecified; I70.268 Atherosclerosis of native arteries of extremities with gangrene, other extremity; D62 Acute posthemorrhagic anemia; N39.0 Urinary tract infection, site not specified; I48.2 Chronic atrial fibrillation; G30.9 Alzheimer's disease, unspecified; E87.70 Fluid overload, unspecified; F02.80 Dementia in other diseases classified elsewhere, unspecified severity, without behavioral disturbance, psychotic disturbance, mood disturbance, and anxiety; J44.9 Chronic obstructive pulmonary disease, unspecified; B96.20 Unspecified Escherichia coli [E. coli] as the cause of diseases classified elsewhere; I25.10 Atherosclerotic heart disease of native coronary artery without angina pectoris; F17.290 Nicotine dependence, other tobacco product, uncomplicated; E87.6 Hypokalemia; L98.491 Non-pressure chronic ulcer of skin of other sites limited to breakdown of skin; G40.909 Epilepsy, unspecified, not intractable, without status epilepticus; Z66 Do not resuscitate; K59.00 Constipation, unspecified; F20.9 Schizophrenia, unspecified; Z68.29 Body mass index [BMI] 29.0-29.9, adult; Z79.01 Long term (current) use of anticoagulants; Z74.01 Bed confinement status; Z95.1 Presence of aortocoronary bypass graft; Z86.73 Personal history of transient ischemic attack (TIA), and cerebral infarction without residual deficits
CPT/HCPCS: 36415; 36600; 71010; 73630-RT; 80048; 80053; 80069; 80202; 81001; 82805; 82962; 83605; 83735; 83880; 84132; 84134; 84145; 84484; 85025; 85610; 85730; 86850; 86900; 86901; 86920; 87040; 87077; 87086; 87150; 87186; 88307; 88311; 92610-GN; 93005; 94640; 96365; 96375; 97161-GP; 97165-GO; 99285; A9270-GY; G8978-CN-GP; G8979-CN-GP; G8980-CN-GP; G8987-CL-GO; G8988-CL-GO; G8989-CL-GO; G8996-CK-GN; G8997-CK-GN; G8998-CK-GN; J0330; J0692; J1170; J1940; J2370; J2405; J3010; J3370; P9016; P9045; P9047

== ENCOUNTER 2017-07-13 15:37 | Emergency (ER) | payer MEDICARE, OTHER ==
[2017-07-13 17:42] LABS: ASCORBIC ACID (UR NOT ORDER) NEG (NEG); BILIRUBIN, URINE NEGATIVE (NEG); ER URINALYSIS TAT 0 Hrs 10 Mins; KETONE, URINE NEGATIVE (NEG); LEUKOCYTE ESTERASE(NOT OR NEG (NEG); WBC (NOT ORDERED) (RFLEX) 1 (0-5)
[2017-07-13 17:48] LABS: NITRITE (URINE) NEG (NEG)
[2017-07-13 17:58] LABS: BASOPHILS 0.4 %; BASOPHILS ABSOLUTE 0.02 10/3/uL (0.0-0.16); EOSINOPHILS ABSOLUTE 0.09 10/3/uL (0.0-0.53); HEMATOCRIT 34.9 % (36.0-48.0); HEMOGLOBIN 10.8 g/dL (12.0-16.0); IMMATURE GRANULOCYTES 0.2 %; IMMATURE GRANULOCYTES ABSOLUTE 0.01 10/3/uL (0.0-0.11); LYMPHOCYTES 33.5 %; LYMPHOCYTES ABSOLUTE 1.52 10/3/uL (0.67-4.30); MEAN CORPUS HGB CONC 30.9 g/dL (32.0-36.0); MEAN CORPUSCULAR VOLUME 90.4 fL (80-100); MEAN PLATELET VOLUME 8.8 fL (9.2-13.0); MONOCYTES 7.5 %; MONOCYTES ABSOLUTE 0.34 10/3/uL (0.21-1.20); NEUTROPHILS 56.4 %; NEUTROPHILS ABSOLUTE 2.56 10/3/uL (2.02-8.40); PLATELET COUNT 289 10/3/uL (150-400); RBC DISTRIBUTION WIDTH 16.1 % (12.0-16.0); RED CELL COUNT 3.86 10/6/uL (4.0-5.6); WHITE BLOOD CELLS 4.5 10/3/uL (4.5-10.5)
[2017-07-13 17:59] LABS: MANUAL DIFF NO %
[2017-07-13 18:04] LABS: INTERNATIONAL NORMAL RATI 1.5 UNITS (-)
[2017-07-13 18:05] LABS: PARTIAL THROMBO TIME 35.7 SEC (22.5-37.2)
[2017-07-13 18:06] LABS: PROTIME (NOT ORD) 17.5 SEC (12.0-14.5)
[2017-07-13 18:14] LABS: A/G RATIO 0.5 (0.7-1.9); ALBUMIN 2.1 G/DL (3.5-5.0); ALKALINE PHOSPHATASE 152 U/L (45-117); BUN (BLOOD UREA NITROGEN) 10 MG/DL (6-23); CALCIUM, SERUM 8.4 MG/DL (8.5-10.4); CHLORIDE, SERUM 105 MMOL/L (96-112); CO2 (CARBON DIOXIDE) 30 MMOL/L (24-34); CREATININE 0.57 MG/DL (0.55-1.02); GFR AFRICAN AMERICAN 105 ML/MIN (>=60); GFR NON AFRICAN AMERICAN 91 ML/MIN (>=60); GLOBULIN 4.2 G/DL (2.5-4.1); GLUCOSE, SERUM 80 MG/DL (60-99); POTASSIUM, SERUM 4.4 MMOL/L (3.5-5.3); SGOT(AST) 14 U/L (5-40); SGPT(ALT) 15 U/L (5-65); SODIUM, SERUM 139 MMOL/L (135-148); TOTAL BILIRUBIN 0.4 MG/DL (0-1.2); TOTAL PROTEIN 6.3 G/DL (6.0-8.5); TROPONIN I <0.02 NG/ML (<0.05)
== END 2017-07-13 21:19 | disposition home or self-care (01) ==
LOC: ER 15:37
PROVIDERS: Nurse Practitioner Acute Care
DX: J44.9 Chronic obstructive pulmonary disease, unspecified (principal); Z87.891 Personal history of nicotine dependence; Z87.01 Personal history of pneumonia (recurrent); I48.91 Unspecified atrial fibrillation; F20.9 Schizophrenia, unspecified; F31.9 Bipolar disorder, unspecified; F03.90 Unspecified dementia, unspecified severity, without behavioral disturbance, psychotic disturbance, mood disturbance, and anxiety; Z95.1 Presence of aortocoronary bypass graft; Z88.0 Allergy status to penicillin; Z79.899 Other long term (current) drug therapy
CPT/HCPCS: 71010; 80053; 81001; 83880; 84484; 85025; 85610; 85730; 93005; 99285